=== PATIENT | female | born 1985 | race African-American/Black ===

== ENCOUNTER 2020-03-29 06:49 | Observation (INO) | payer MEDICAID ==
[2020-03-29] MEDS ORDERED: LACTATED RINGERS 500 ML IV ONE (07:02)
[2020-03-29 07:56] LABS: Basophils % (Auto) 0.5 % (0.0-1.8); Eosinophils # (Auto) 0.1 K/mm3 (0.0-0.4); Eosinophils % (Auto) 0.8 % (0.0-4.3); Hematocrit 33.8 % (30.3-42.9); Hemoglobin 11.3 gm/dl (10.1-14.3); Lymphocytes # (Auto) 1.5 K/mm3 (1.2-5.4); Lymphocytes % (Auto) 18.2 % (13.4-35.0); Mean Corpuscular HGB Conc 34 % (30-34); Mean Corpuscular Volume 89 fl (79-97); Monocytes # (Auto) 0.5 K/mm3 (0.0-0.8); Monocytes % (Auto) 6.7 % (0.0-7.3); Platelet Count 241 K/mm3 (140-440); Red Blood Count 3.81 M/mm3 (3.65-5.03); Red Cell Distribution Width 13.9 % (13.2-15.2)
[2020-03-29 08:10] LABS: Bilirubin,Urine NEG (Negative); Blood,Urine NEG (Negative); Color,Urine Yellow (Yellow); Hyaline Casts,Urine 1 /LPF; Mucus,Urine FEW /HPF; Protein,Urine <15 mg/dL mg/dL (Negative); Urobilinogen,Urine < 2.0 mg/dL (<2.0)
[2020-03-29] MEDS ORDERED: MORPHINE 4 MG/1 ML INJ IV NR (08:38)
[2020-03-29] MEDS ORDERED: TERBUTALINE 1 MG/1 ML INJ ONE (08:54)
[2020-03-29] MEDS ORDERED: ceFAZolin/Water 2 GM/20 ML 2 GM/20 ML SYRINGE IV NR (09:00)
[2020-03-29] MEDS ORDERED: TERBUTALINE 1 MG/1 ML INJ SUB-Q ONE (09:03)
[2020-03-29] MEDS ORDERED: ONDANSETRON 4 MG/2 ML INJ IM ONE (11:35)
[2020-03-29] MEDS: LACTATED RINGERS 1,000 ML IV SCH ×2 (11:50→14:24)
[2020-03-29 12:18] LABS: Alanine Aminotransferase 8 units/L (7-56); Albumin 3.1 g/dL (3.9-5); Blood Urea Nitrogen 8 mg/dL (7-17); Calcium 8.5 mg/dL (8.4-10.2); Hemolysis Index 1
[2020-03-29 12:19] LABS: BUN/Creatinine Ratio 20
[2020-03-29] MEDS: MORPHINE 4 MG/1 ML INJ IV PRN ×2 (14:24→21:27)
[2020-03-29] MEDS ORDERED: ONDANSETRON 4 MG/2 ML INJ IV PRN (14:30)
--- NOTE | 2020-03-29 15:32 | Ultrasound Report ---
US OB BPP wo non-stress, US OB limited INDICATION: abdominal pains. TECHNIQUE: Transabdominal. Color Doppler was performed. COMPARISON: None available. FINDINGS: There is a single intrauterine . Heart Rate: 143 beats per minute. Amniotic fluid: 7.9 cm which is within normal limits. Position: cephalic. Biophysical Profile: breathing movements: 2 movements:2 posture and tone:2 Qualitative amniotic fluid volume: 2 Placenta: Posterior and appears within normal limits. IMPRESSION: 1. No significant abnormality. Biophysical profile is 8 of 8. Signer Name: Slava Murillo MD Signed: 03/29/2020 3:28 PM Workstation Name: [id number]
--- NOTE | 2020-03-29 16:01 | Ultrasound Report ---
ULTRASOUND ABDOMEN, COMPLETE INDICATION: Abdominal pain. COMPARISON: None available. FINDINGS: Pancreas: Obscured by bowel gas. Abdominal Aorta: Normal. IVC: Normal. Liver: Normal. Gallbladder: Normal. Bile ducts: Normal. Common Bile Duct measures 3-4 mm. Right Kidney: Normal. Left Kidney: Normal. Spleen: Normal. Free fluid: None. Additional Findings: None. IMPRESSION: 1. No sonographic abnormality of the abdomen. Signer Name: Mckinley More MD Signed: 03/29/2020 3:57 PM Workstation Name: [id number]
[2020-03-30] MEDS: MORPHINE 4 MG/1 ML INJ IV PRN (04:14)
[2020-03-30] MEDS: LACTATED RINGERS 1,000 ML IV SCH (08:15)
[2020-03-30 08:22] VITALS: BP 131/75
== END 2020-03-30 09:50 | disposition home or self-care (01) ==
LOC: TRG 06:49 → APU 06:49 → TRG 09:18 → LD 18:11
PROVIDERS: ADMIT Obstetrics & Gynecology; ATTEND Obstetrics & Gynecology
DX: O62.9 Abnormality of forces of labor, unspecified (principal); Z98.891 History of uterine scar from previous surgery; Z3A.35 35 weeks gestation of pregnancy; Z79.899 Other long term (current) drug therapy
CPT/HCPCS: 36415; 59025; 76700; 76815; 76819; 80053; 81001; 82150; 82962; 83690; 85025; 86592; 86850; 86900; 86901; 96361; 96372; 96374; 96375; 96376; G0378; J0690; J2270; J2405; J3105; J7120; 96360; 96365